=== PATIENT | male | born 1965 | race Caucasian/White ===

== ENCOUNTER 2018-02-08 05:10 | Inpatient (IN) | payer OTHER ==
[2018-02-04 09:12] LABS: BASOPHILS # (AUTO) 0.1 (0.0-0.1); BASOPHILS % 1.4 % (0.0-1.0); EOSINOPHILS # (AUTO) 0.2 (0.0-0.4); EOSINOPHILS % 4.3 % (0.0-6.0); HEMATOCRIT 44.7 % (38.2-49.6); HEMOGLOBIN 15.3 g/dL (14.0-18.0); LYMPHOCYTES # (AUTO) 1.8 (1.0-3.2); LYMPHOCYTES % 32.1 % (18.0-39.1); MEAN CORPUSCULAR HEMOGLOBIN 29.6 pg (28-32); MEAN CORPUSCULAR HGB CONC 34.2 g/dL (31-35); MEAN CORPUSCULAR VOLUME 86.5 fL (81-99); MONOCYTES # (AUTO) 0.4 (0.2-0.8); MONOCYTES % 7.4 % (4.4-11.3); NEUTROPHILS # (AUTO) 3.1 (2.1-6.9); NEUTROPHILS % 54.3 % (38.7-80.0); PLATELET COUNT 242 x10e3/uL (140-360); RED BLOOD COUNT 5.17 x10e6/uL (4.3-5.7)
[2018-02-04 09:28] LABS: BLOOD UREA NITROGEN 15 mg/dL (7-26); BUN/CREATININE RATIO 15 (6-25); CALCIUM 9.6 mg/dL (8.4-10.2); CARBON DIOXIDE 24 mmol/L (22-29); CHLORIDE 107 mmol/L (98-107); CREATININE, SERUM 1.01 mg/dL (0.72-1.25); EST GLOMERULAR FILTRATION RATE > 60 ML/MIN (60-); GLUCOSE 140 mg/dL (74-118); SODIUM 140 mmol/L (136-145)
[~2018-02-08] VITALS: Ht 170.2 cm; Wt 133.9 kg
[~2018-02-08 05:10] MED LIST: ADDERALL XR 2020 MG PO; CYMBALTA30 MG PO; DICYCLOMINE HCL20 MG PO; FISH OIL 1,2001 EAC1 PO; LYRICA75 MG PO; PANTOPRAZOLE SO40 MG PO; VITAMIN B-121000 MCG PO; VITAMIN D250000 UNIT PO
[2018-02-08] MEDS ORDERED: CEFAZOLIN SOD 2 GM/D5W 50ML 50 ML IV ONE (05:34)
[2018-02-08] MEDS ORDERED: BUPIVACAINE HCL 0.5% INJ 30 ML VIAL INJ ONE (06:32)
[2018-02-08] MEDS ORDERED: BACITRACIN 50,000 UNIT VIAL ONE (06:32)
[2018-02-08] MEDS ORDERED: ACETAMINOPHEN 1000 MG/100 ML IV PRN (08:30)
[2018-02-08] MEDS ORDERED: NALOXONE HCL INJ 0.4 MG/ML AMP IV PRN (08:30)
[2018-02-08] MEDS ORDERED: FENTANYL CITRATE/PF 100MCG/2 ML INJ ONE ×2 (08:51→18:43)
[2018-02-08] MEDS: HYDROMORPHONE 0.2MG/ML-SOD CHL 30ML PCA SYRINGE IV PRN ×2 (08:53→15:50)
[2018-02-08] MEDS ORDERED: DULOXETINE HCL 30 MG DELAYED RELEASE PO SCH (09:00)
--- NOTE | 2018-02-08 09:58 | Operative Report ---
DATE OF PROCEDURE: February 08, 2018 PREOPERATIVE DIAGNOSIS: Incisional hernia. POSTOPERATIVE DIAGNOSIS: Incisional hernia. OPERATION PERFORMED: Repair of incisional hernia with mesh. RESERVOIR CARETAKER: None. ANESTHESIA: General. INDICATIONS AND FINDINGS: Patient is a 52-year-old male who presented with complaint of a bulge in his upper abdomen where he had previous surgery. At surgery, there was found to be a hernia in the upper midline with 2 separate areas of herniation, one at the superior end of the wound and one to the right and lower end of the wound. There were some adhesions involving the omentum. Otherwise, no abnormalities were noted intraabdominally. TECHNIQUE: After adequate general endotracheal anesthesia, with the patient in supine position, the abdomen was prepped and draped in a sterile fashion with [place] solution. The midline scar was excised. Incision was carried down through the subcutaneous tissue. There was a large hernia in the upper abdomen which contained colon. This was reduced in the peritoneal cavity. There were adhesions to the abdominal wall which were lysed. The hernia defect was completely delineated. Inferiorly there was a 2nd hernia to the right of the midline. This was also completely delineated. Adhesions to the hernia were lysed, delineating the fascia completely. Once the hernias were completely delineated, there was small thinned-out bridge of fascia in the area. This was opened to create 1 larger defect. The skin and subcutaneous tissues were dissected away from the fascia. Once this was done , a Sepramesh was soaked in antibiotic solution, fashioned to the appropriate size and sutured to the undersurface of the fascia in intraperitoneal position with interrupted horizontal mattress sutures of #0 Prolene. Sutures taken about 3 cm from the edge of the defect throughout the circumference of the hernia defect. Once the mesh was in place, the thinned-out edge of the fascia was closed over the mesh with a running suture of #0 Prolene. A 10-mm Herber-Quintanilla drain was placed into the subcutaneous tissue through a separate stab wound incision. The wound was irrigated with antibiotic solution and inspected for hemostasis, which was seen to be adequate. Subcutaneous tissue was then closed with a running suture of 2-0 Vicryl. Skin was closed with ulisses. Sterile dressing was applied. Patient tolerated the procedure well. Estimated blood loss was 30 mL. There were no complications. All counts were correct. Patient was taken to the recovery room in satisfactory condition. Job#: [id number]
[2018-02-08 11:45] VITALS: BP 124/60
[2018-02-08 11:47] VITALS: BP 124/60
[2018-02-08] MEDS: DICYCLOMINE HCL 20 MG TAB PO SCH ×4 (13:00→20:51)
[2018-02-08] MEDS: SODIUM CHLORIDE 0.9% 1000ML 1,000 ML IV SCH (13:27)
[2018-02-08] MEDS ORDERED: CEFAZOLIN SOD 1 GM/NS 50ML 100 ML IV SCH (14:00)
[2018-02-08] MEDS: CEFAZOLIN SOD 1 GM VIAL IV SCH ×2 (15:51→22:51)
[2018-02-08] MEDS: CYANOCOBALAMIN 1,000 MCG TAB PO SCH (15:51)
[2018-02-08] MEDS: PREGABALIN 75 MG CAP PO SCH (15:51)
[2018-02-08] MEDS: PANTOPRAZOLE SOD 40 MG TABEC PO SCH (15:51)
[2018-02-08] MEDS ORDERED: ADDERALL 20 MG PO SCH (17:00)
[2018-02-08] MEDS ORDERED: SUCCINYLCHOLINE 200 MG/10 ML SYR ONE (17:23)
[2018-02-08] MEDS ORDERED: NEOSTIGMINE 5 MG/5ML SYR ONE (17:23)
[2018-02-08] MEDS ORDERED: ROCURONIUM BROMIDE 10 MG/ML 5ML VIAL ONE (17:23)
[2018-02-08] MEDS ORDERED: DEXAMETHASONE SOD PHOS INJ 4 MG/ML VIAL ONE (17:23)
[2018-02-08] MEDS ORDERED: GLYCOPYRROLATE INJ 1MG/ 5 ML SYR ONE (17:23)
[2018-02-08] MEDS ORDERED: ACETAMINOPHEN 1000 MG/100 ML IV ONE (17:23)
[2018-02-08] MEDS ORDERED: PROPOFOL IV EMULSION 10 MG/ML 20 ML VIAL ONE (17:23)
[2018-02-08] MEDS ORDERED: ONDANSETRON HCL INJ 2 MG/ML VIAL ONE (17:23)
[2018-02-08] MEDS ORDERED: SEVOFLURANE INHAL SOLN 250 ML PEN BTL ONE (17:23)
[2018-02-08] MEDS ORDERED: LIDOCAINE HCL 2% LOCAL INJ 5 ML SDV VIAL INJ ONE (17:23)
[2018-02-08] MEDS ORDERED: ERGOCALCIFEROL 50,000 UNIT CAP PO SCH (18:00)
[2018-02-08] MEDS: ONDANSETRON HCL INJ 2 MG/ML VIAL IV PRN ×2 (18:09→22:58)
[2018-02-08] MEDS ORDERED: MORPHINE SULFATE INJ 10 MG/ML ONE (18:43)
[2018-02-08] MEDS ORDERED: MIDAZOLAM HCL 2 MG/2 ML VIAL ONE (18:43)
[2018-02-08 20:00] VITALS: BP 98/55
[2018-02-08] MEDS: KETOROLAC TROMETHAMINE 30 MG/ML VIAL IV PRN (20:52)
[2018-02-09] VITALS (8 sets, daily range): BP systolic 104–132; BP diastolic 57–75
[2018-02-09] MEDS: KETOROLAC TROMETHAMINE 30 MG/ML VIAL IV PRN ×4 (04:13→23:49)
[2018-02-09] MEDS: SODIUM CHLORIDE 0.9% 1000ML 1,000 ML IV SCH (04:44)
[2018-02-09] MEDS: CEFAZOLIN SOD 1 GM VIAL IV SCH (06:00)
[2018-02-09 07:10] LABS: BASOPHILS % 0.1 % (0.0-1.0); EOSINOPHILS % 0.1 % (0.0-6.0); HEMATOCRIT 41.6 % (38.2-49.6); HEMOGLOBIN 13.6 g/dL (14.0-18.0); LYMPHOCYTES # (AUTO) 1.2 (1.0-3.2); MEAN CORPUSCULAR HEMOGLOBIN 29.8 pg (28-32); MEAN CORPUSCULAR HGB CONC 32.7 g/dL (31-35); MONOCYTES % 10.7 % (4.4-11.3); NEUTROPHILS % 75.7 % (38.7-80.0); PLATELET COUNT 260 x10e3/uL (140-360); RED BLOOD COUNT 4.57 x10e6/uL (4.3-5.7); RED CELL DISTRIBUTION WIDTH 13.5 % (11.7-14.4)
[2018-02-09 07:30] LABS: ANION GAP 14.2 mmol/L (8-16); BLOOD UREA NITROGEN 16 mg/dL (7-26); BUN/CREATININE RATIO 17 (6-25); CALCIUM 8.8 mg/dL (8.4-10.2); CARBON DIOXIDE 23 mmol/L (22-29); CHLORIDE 107 mmol/L (98-107); CREATININE, SERUM 0.96 mg/dL (0.72-1.25); EST GLOMERULAR FILTRATION RATE > 60 ML/MIN (60-); GLUCOSE 102 mg/dL (74-118); POTASSIUM 4.2 mmol/L (3.5-5.1); SODIUM 140 mmol/L (136-145)
[2018-02-09] MEDS ORDERED: ERGOCALCIFEROL 50,000 UNIT CAP PO SCH (09:00)
[2018-02-09] MEDS: DICYCLOMINE HCL 20 MG TAB PO SCH ×4 (09:20→20:40)
[2018-02-09] MEDS: PREGABALIN 75 MG CAP PO SCH (09:21)
[2018-02-09] MEDS: CYANOCOBALAMIN 1,000 MCG TAB PO SCH (09:21)
[2018-02-09] MEDS: HOME MEDICATION--PATIENTS OWN PO SCH (09:21)
[2018-02-09] MEDS: PANTOPRAZOLE SOD 40 MG TABEC PO SCH (09:21)
[2018-02-09] MEDS ORDERED: SODIUM CHLORIDE FLUSH 10 ML SYR INJ PRN (13:15)
[2018-02-09] MEDS ORDERED: DULOXETINE HCL 30 MG DELAYED RELEASE PO SCH (21:00)
[2018-02-10] VITALS (7 sets, daily range): BP systolic 104–157; BP diastolic 56–70
[2018-02-10] MEDS: KETOROLAC TROMETHAMINE 30 MG/ML VIAL IV PRN (07:25)
[2018-02-10] MEDS: PREGABALIN 75 MG CAP PO SCH (08:20)
[2018-02-10] MEDS: DICYCLOMINE HCL 20 MG TAB PO SCH ×2 (08:20→13:09)
[2018-02-10] MEDS: HOME MEDICATION--PATIENTS OWN PO SCH (08:20)
[2018-02-10] MEDS: CYANOCOBALAMIN 1,000 MCG TAB PO SCH (08:21)
[2018-02-10] MEDS: PANTOPRAZOLE SOD 40 MG TABEC PO SCH (08:21)
[2018-02-10] MEDS: HYDROCODONE/APAP 5MG-325MG TAB PO PRN ×2 (11:34→15:36)
--- NOTE | 2018-02-10 15:50 | Discharge Summary ---
ADMISSION DIAGNOSIS: Incisional hernia. DISCHARGE DIAGNOSIS: Incisional hernia. PROCEDURE: Repair of incisional hernia with mesh. HISTORY OF PRESENT ILLNESS: The patient is a a 52-year-old male with previous upper abdominal surgery. He developed swelling at the site of the surgery. Exam revealed 2 separate hernias in the upper abdomen. HOSPITAL COURSE: The patient was admitted to the hospital and underwent surgery the same day as admission. He had repair of incisional hernia with mesh. Postoperatively, the patient was stable. He was started on liquid diet, which he tolerated without problem. Diet was advanced without difficulty. Bowel function returned to normal. He is out of bed ambulating. He had drain placed at the time of surgery, which was draining serosanguineous fluid, and this was removed prior to discharge which was on the second postop day. The patient was discharged on the second postop day. At the time of discharge, he was afebrile, ambulating and tolerating diet. Wound was clean. DISCHARGE MEDICATIONS: [place]. FOLLOWUP INSTRUCTIONS: He will follow up with Dr. Mays in approximately 10 days after discharge. He was sent home in satisfactory condition on a regular diet. MARY ANNE MAYS MD Job#: [id number]
== END 2018-02-10 16:30 | disposition home or self-care (01) | DRG 354 ==
LOC: OR 05:10 → MED/SURG3 11:50
PROVIDERS: ADMIT Surgery; ATTEND Surgery
PROC: 0WUF0JZ Supplement Abdominal Wall with Synthetic Substitute, Open Approach (ICD-10-PCS; principal; 2018-02-08 07:00)
DX: K43.0 Incisional hernia with obstruction, without gangrene (principal); Z68.42 Body mass index [BMI] 45.0-49.9, adult; G47.33 Obstructive sleep apnea (adult) (pediatric); K21.9 Gastro-esophageal reflux disease without esophagitis; E66.3 Overweight
CPT/HCPCS: 36415; 80048; 85025; 93005; 96361; C1781; J0690; J1100; J1885; J2001; J2250; J2270; J2405; J7030

== ENCOUNTER 2019-07-12 07:17 | Observation (INO) | payer OTHER ==
[2019-07-10 10:47] LABS: BASOPHILS # (AUTO) 0.1 (0.0-0.1); BASOPHILS % 1.3 % (0.0-1.0); EOSINOPHILS # (AUTO) 0.3 (0.0-0.4); EOSINOPHILS % 4.2 % (0.0-6.0); HEMATOCRIT 44.1 % (38.2-49.6); HEMOGLOBIN 14.7 g/dL (14.0-18.0); LYMPHOCYTES # (AUTO) 1.9 (1.0-3.2); LYMPHOCYTES % 26.9 % (18.0-39.1); MEAN CORPUSCULAR HEMOGLOBIN 29.5 pg (28-32); MEAN CORPUSCULAR HGB CONC 33.3 g/dL (31-35); MEAN CORPUSCULAR VOLUME 88.4 fL (81-99); MONOCYTES # (AUTO) 0.7 (0.2-0.8); MONOCYTES % 10.4 % (4.4-11.3); NEUTROPHILS # (AUTO) 3.9 (2.1-6.9); NEUTROPHILS % 56.5 % (38.7-80.0); PLATELET COUNT 238 x10e3/uL (140-360); RED BLOOD COUNT 4.99 x10e6/uL (4.3-5.7); RED CELL DISTRIBUTION WIDTH 13.7 % (11.7-14.4)
[2019-07-10 11:09] LABS: ANION GAP 13.2 mmol/L (8-16); BLOOD UREA NITROGEN 20 mg/dL (7-26); BUN/CREATININE RATIO 19 (6-25); CALCIUM 9.3 mg/dL (8.4-10.2); CARBON DIOXIDE 22 mmol/L (22-29); CHLORIDE 106 mmol/L (98-107); CREATININE, SERUM 1.07 mg/dL (0.72-1.25); EST GLOMERULAR FILTRATION RATE > 60 ML/MIN (60-); GLUCOSE 96 mg/dL (74-118); POTASSIUM 4.2 mmol/L (3.5-5.1); SODIUM 137 mmol/L (136-145)
--- NOTE | 2019-07-10 11:56 | Diagnostic Imaging Report ---
Exam: PA and lateral chest radiograph Clinical history: Preoperative clearance Findings: There is no evidence of pulmonary consolidation, pleural effusion, or pneumothorax. There is blunting of the left costophrenic sulcus which may represent pleural thickening versus small pleural effusion. The patient is status post upper lumbar fusion with postoperative changes. Impression: 1. Left basilar mild pleural thickening versus effusion. Otherwise, no acute cardiorespiratory disease. Signed by: Dr. Rome Monge MD on 07/10/2019 11:52 AM
[~2019-07-12] VITALS: Ht 170.2 cm; Wt 138.8 kg
--- OUTSIDE RECORDS SUMMARY | 2019-07-12 07:24 | XMS REPORT ---
Author Author [facility] Address Unknown Phone Unavailable Care Team Providers Care Apartment Manager Name Role Phone MARY ANNE HELTON Unavailable Unavailable Problems This patient has no known problems. Allergies, Adverse Reactions, Alerts This patient has no known allergies or adverse reactions. Medications This patient has no known medications. Results Test Description Test Time Test Comments Text Results Atomic Results Result Comments CHEST 2 VIEWS 2019-07-10 11:51:00 [place] [address] Patient Name: JEYSON MURILLO MR #: [id number] : 1965 Age/Sex: 54/M Req #: [id number] Adm Physician: Ordered by: YOANA KRUEGER MD Report #: [id number] Location: OR Room/Bed: Procedure: [id number] DX/CHEST 2 VIEWS Exam Date: 07/10/19 Exam Time: 1037 REPORT STATUS: Signed Exam: PA and lateral chest radiograph Clinical history: Preoperative clearance Findings: There is no evidence of pulmonary consolidation, pleural effusion, or pneumothorax. There is blunting of the left costophrenic sulcus which may represent pleural thickening versus small pleural effusion. The patient is status post upper lumbar fusion with postoperative changes. Impression: 1. Left basilar mild pleural thickening versus effusion. Otherwise, no acute cardiorespiratory disease. Signed by: Dr. Rome Monge MD on 07/10/2019 11:52 AM Dictated By: CHARU MONGE MD 1152 Transcribed By: ROSALIA on 07/10/19 1152 COPY TO: YOANA KRUEGER MD
--- OUTSIDE RECORDS SUMMARY | 2019-07-12 07:24 | XMS REPORT | Continuity of Care Document ---
Author Author [facility] [employer] Address Unknown Phone Unavailable Care Team Providers Care Seam Taper Machine Name Role Phone [facility] [employer] Unavailable Unavailable Problems No Data Provided for This Section Medications Medication Details Route Status Patient Instructions Ordering Provider Order Date Source Amphet Asp/Amphet/D-Amphet (Adderall Xr 20 Mg Capsule) 20 Mg Cap.er.24h Twice A Day [facility] Cyanocobalamin (Vitamin B-12) 1,000 Mcg Tab Daily [facility] Dicyclomine Hcl 20 Mg Tablet Four Times Daily [facility] Duloxetine Hcl (Cymbalta) 30 Mg Capsule.dr [place] [facility] Ergocalciferol (Vitamin D2) (Vitamin D2) 50,000 Unit Capsule Weekly [facility] [place]-3 Fatty Acids/Fish Oil (Fish Oil 1,200 Mg Softgel) 1 Each Capsule Daily [facility] Pantoprazole Sodium (Protonix) 40 Mg Tablet.dr [place] [facility] Pregabalin (Lyrica) 75 Mg Cap Daily [facility] Allergies, Adverse Reactions, Alerts No Known Medication Allergies Immunizations No Data Provided for This Section Results Order Name Results Value Reference Range Date Interpretation Comments Source Automated blood basophil count (count/volume) Automated blood basophil count (count/volume) 0.0 0.0 - 0.1 02/09/2018 [facility] Automated blood basophil count as percentage of total leukocytes Automated blood basophil count as percentage of total leukocytes 0.1 0.0 - 1.0 02/09/2018 [facility] Automated blood eosinophil count Automated blood eosinophil count 0.0 0.0 - 0.4 02/09/2018 [facility] Automated blood eosinophil count as percentage of total leukocytes Automated blood eosinophil count as percentage of total leukocytes 0.1 0.0 - 6.0 02/09/2018 [facility] Automated blood hematocrit (volume fraction) Automated blood hematocrit (volume fraction) 41.6 38.2 - 49.6 02/09/2018 [facility] Automated blood lymphocyte count as percentage ot total leukocytes Automated blood lymphocyte count as percentage ot total leukocytes 13.0 18.0 - 39.1 02/09/2018 [facility] Automated blood monocyte count as percentage of total leukocytes Automated blood monocyte count as percentage of total leukocytes 10.7 4.4 - 11.3 02/09/2018 [facility] Automated blood neutrophil count Automated blood neutrophil count 7.0 2.1 - 6.9 02/09/2018 [facility] Automated blood platelet count (count/volume) Automated blood platelet count (count/volume) 260 140 - 360 02/09/2018 [facility] Automated blood segmented neutrophil count as percentage of total leukocytes Automated blood segmented neutrophil count as percentage of total leukocytes 75.7 38.7 - 80.0 02/09/2018 [facility] Automated erythrocyte mean corpuscular hemoglobin (mass per erythrocyte) Automated erythrocyte mean corpuscular hemoglobin (mass per erythrocyte) 29.8 28 - 32 02/09/2018 [facility] Automated erythrocyte mean corpuscular hemoglobin concentration measurement (mass/volume) Automated erythrocyte mean corpuscular hemoglobin concentration measurement (mass/volume) 32.7 31 - 35 02/09/2018 [facility] Automated erythrocyte mean corpuscular volume Automated erythrocyte mean corpuscular volume 91.0 81 - 99 02/09/2018 [facility] Blood erythrocytes automated count (number/volume) Blood erythrocytes automated count (number/volume) 4.57 4.3 - 5.7 02/09/2018 [facility] Blood hemoglobin measurement (moles/volume) Blood hemoglobin measurement (moles/volume) 13.6 14.0 - 18.0 02/09/2018 [facility] Blood leukocytes automated count (number/volume) Blood leukocytes automated count (number/volume) 9.18 4.8 - 10.8 02/09/2018 [facility] Blood lymphocytes count (number/volume) Blood lymphocytes count (number/volume) 1.2 1.0 - 3.2 02/09/2018 [facility] Blood monocytes automated count (number/volume) Blood monocytes automated count (number/volume) 1.0 0.2 - 0.8 02/09/2018 [facility] Estimated glomerular filtration rate (GFR) determination Estimated glomerular filtration rate (GFR) determination >60 60 02/09/2018 [facility] Glucose measurement Glucose measurement 102 74 - 118 02/09/2018 [facility] Serum or plasma anion gap Serum or plasma anion gap 14.2 8 - 16 02/09/2018 [facility] Serum or plasma calcium measurement (mass/volume) Serum or plasma calcium measurement (mass/volume) 8.8 8.4 - 10.2 02/09/2018 [facility] Serum or plasma carbon dioxide, total measurement (moles/volume) Serum or plasma carbon dioxide, total measurement (moles/volume) 23 22 - 29 02/09/2018 [facility] Serum or plasma chloride measurement (moles/volume) Serum or plasma chloride measurement (moles/volume) 107 98 - 107 02/09/2018 [facility] Serum or plasma creatinine measurement (mass/volume) Serum or plasma creatinine measurement (mass/volume) 0.96 0.72 - 1.25 02/09/2018 [facility] Serum or plasma potassium measurement (moles/volume) Serum or plasma potassium measurement (moles/volume) 4.2 3.5 - 5.1 02/09/2018 [facility] Serum or plasma sodium measurement (moles/volume) Serum or plasma sodium measurement (moles/volume) 140 136 - 145 02/09/2018 [facility] Serum or plasma urea nitrogen measurement (mass/volume) Serum or plasma urea nitrogen measurement (mass/volume) 16 7 - 26 02/09/2018 [facility] Serum or plasma urea nitrogen/creatinine mass ratio Serum or plasma urea nitrogen/creatinine mass ratio 17 6 - 25 02/09/2018 [facility] Red Cell Distribution Width 13.5 11.7 - 14.4 02/09/2018 [facility] IM GRANULOCYTES % 0.4 0.0 - 1.0 02/09/2018 [facility] Absolute Immature Granulocyte (auto 0.04 0 - 0.1 02/09/2018 [facility] Pathology Reports No Data Provided for This Section Diagnostic Reports No Data Provided for This Section Consultation Notes No Data Provided for This Section Discharge Summaries No Data Provided for This Section History and Physicals No Data Provided for This Section Vital Signs No Data Provided for This Section Encounters Location Location Details Encounter Type Encounter Number Reason For Visit Attending Provider ADM Date DC Date Status Source Discharged Inpatient [id number] MARY ANNE HELTON MD 02/08/2018 02/10/2018 [facility] Procedures Procedure Code Date Perfomer Comments Source Repair of incisional hernia [id number] 02/08/2018 [facility] Assessment and Plan No Data Provided for This Section Plan of Care Plan of Care Date Source Discharge Date 02/10/18 4:30pm Disposition HOME, SELF-CARE Instructions/Education Provided Abdominal Pain - Adult Post Operative Pain Prescriptions See Medication Section Referrals MARY ANNE HELTON MD (Surgery) Entered Date: 02/10/2018 4:03pm Address: [address] [place] [id number] Additional Instructions/Education Regular diet Pt may shower. Prescription for [place] Pt should call [phone] for F/U juan josé't with in 10 -14 days 02/10/2018 [facility] Social History Social History Date Source Social History Problem Response Recorded Date/Time Onset Date Status Hx Psychiatric Problems No 02/08/2018 11:45am Not Applicable Not Applicable 02/10/2018 [facility] Family History No Data Provided for This Section Advance Directives Order Name Results Value Date Source Advance Directives Advance Directives Directive Response Recorded Date/Time Does the patient have an advance directive? No 02/08/18 11:45am If yes, is advance directive on file with [facility]? No 02/08/18 11:45am If not on file with [facility] will patient provide a copy? No 02/08/18 11:45am Do you have a Directive to Physician? No 02/04/18 8:25am Do you have a Medical Power of Projection Printer? No 02/04/18 8:25am Do you have an out of hospital Do Not Resuscitate Order? No 02/04/18 8:25am Do you have any special needs we should be aware of? No 02/04/18 8:25am Do you have a support person here with you today? Yes 02/04/18 8:25am Did patient receive Notice of Privacy Practices? Yes 02/04/18 8:25am Did patient receive patient rights and responsibilities? Yes 02/04/18 8:25am 02/10/2018 [facility] Functional Status No Data Provided for This Section
[2019-07-12] MEDS ORDERED: CEFAZOLIN SOD 1 GM/NS 50ML 100 ML IV ONE (07:38)
[2019-07-12] MEDS ORDERED: BACITRACIN 50,000 UNIT VIAL ONE (07:42)
[2019-07-12] MEDS ORDERED: BUPIVACAINE HCL 0.5% INJ 30 ML VIAL INJ ONE (07:42)
[2019-07-12] MEDS ORDERED: LIDOCAINE HCL (LTA) 4 ML SOLN ONE (09:10)
[2019-07-12] MEDS ORDERED: SUGAMMADEX SODIUM 200 MG/2 ML VIAL IV ONE (09:11)
[2019-07-12] MEDS ORDERED: ACETAMINOPHEN 1000 MG/100 ML IV PRN (10:15)
[2019-07-12] MEDS ORDERED: KETOROLAC TROMETHAMINE 30 MG/ML VIAL IV PRN (10:15)
[2019-07-12] MEDS ORDERED: HYDROMORPHONE 0.2MG/ML-SOD CHL 30ML PCA SYRINGE IV PRN ×2 (10:15→18:00)
[2019-07-12] MEDS ORDERED: NALOXONE HCL INJ 0.4 MG/ML AMP IV PRN (10:15)
[2019-07-12] MEDS ORDERED: ONDANSETRON HCL INJ 2MG/ML 2ML 2 MG/ML VIAL IV PRN (10:15)
[2019-07-12] MEDS ORDERED: DIPHENHYDRAMINE HCL 25 MG CAP PO PRN (10:15)
[2019-07-12] MEDS ORDERED: HYDROMORPHONE 2MG/ML 2 MG/ML ML ONE (10:35)
[2019-07-12] MEDS ORDERED: HYDROMORPHONE 0.2MG/ML-SOD CHL 30ML PCA SYRINGE IV ONE (10:39)
--- OUTSIDE RECORDS SUMMARY | 2019-07-12 10:54 | XMS REPORT | Continuity of Care Document ---
Author Author [facility] [employer] Address Unknown Phone Unavailable Care Team Providers Care Speech Language Pathologist Assistant Name Role Phone [facility] Information Exchange Unavailable Unavailable Problems No Data Provided for This Section Medications Medication Details Route Status Patient Instructions Ordering Provider Order Date Source Amphet Asp/Amphet/D-Amphet (Adderall Xr 20 Mg Capsule) 20 Mg Cap.er.24h Twice A Day [facility] Cyanocobalamin (Vitamin B-12) 1,000 Mcg Tab Daily [facility] Dicyclomine Hcl 20 Mg Tablet Four Times Daily [facility] Duloxetine Hcl (Cymbalta) 30 Mg Capsule.dr Billingsley [facility] Ergocalciferol (Vitamin D2) (Vitamin D2) 50,000 Unit Capsule Weekly [facility] [place]-3 Fatty Acids/Fish Oil (Fish Oil 1,200 Mg Softgel) 1 Each Capsule Daily [facility] Pantoprazole Sodium (Protonix) 40 Mg Tablet.dr [place] [facility] Pregabalin (Lyrica) 75 Mg Cap Daily [facility] Allergies, Adverse Reactions, Alerts No Known Medication Allergies Immunizations No Data Provided for This Section Results Order Name Results Value Reference Range Date Interpretation Comments Source Automated blood basophil count (count/volume) Automated blood basophil count (count/volume) 0.0 0.0 - 0.1 02/09/[address] [facility] Automated blood basophil count as percentage of total leukocytes Automated blood basophil count as percentage of total leukocytes 0.1 0.0 - 1.0 02/09/[address] [facility] Automated blood eosinophil count Automated blood eosinophil count 0.0 0.0 - 0.4 02/09/[address] [facility] Automated blood eosinophil count as percentage of total leukocytes Automated blood eosinophil count as percentage of total leukocytes 0.1 0.0 - 6.0 02/09/[address] [facility] Automated blood hematocrit (volume fraction) Automated blood hematocrit (volume fraction) 41.6 38.2 - 49.6 02/09/[address] [facility] Automated blood lymphocyte count as percentage ot total leukocytes Automated blood lymphocyte count as percentage ot total leukocytes 13.0 18.0 - 39.1 02/09/[address] [facility] Automated blood monocyte count as percentage of total leukocytes Automated blood monocyte count as percentage of total leukocytes 10.7 4.4 - 11.3 02/09/[address] [facility] Automated blood neutrophil count Automated blood neutrophil count 7.0 2.1 - 6.9 02/09/[address] [facility] Automated blood platelet count (count/volume) Automated blood platelet count (count/volume) 260 140 - 360 02/09/[address] [facility] Automated blood segmented neutrophil count as percentage of total leukocytes Automated blood segmented neutrophil count as percentage of total leukocytes 75.7 38.7 - 80.0 02/09/[address] [facility] Automated erythrocyte mean corpuscular hemoglobin (mass per erythrocyte) Automated erythrocyte mean corpuscular hemoglobin (mass per erythrocyte) 29.8 28 - 32 02/09/[address] [facility] Automated erythrocyte mean corpuscular hemoglobin concentration measurement (mass/volume) Automated erythrocyte mean corpuscular hemoglobin concentration measurement (mass/volume) 32.7 31 - 35 02/09/[address] [facility] Automated erythrocyte mean corpuscular volume Automated erythrocyte mean corpuscular volume 91.0 81 - 99 02/09/[address] [facility] Blood erythrocytes automated count (number/volume) Blood erythrocytes automated count (number/volume) 4.57 4.3 - 5.7 02/09/[address] [facility] Blood hemoglobin measurement (moles/volume) Blood hemoglobin measurement (moles/volume) 13.6 14.0 - 18.0 02/09/[address] [facility] Blood leukocytes automated count (number/volume) Blood leukocytes automated count (number/volume) 9.18 4.8 - 10.8 02/09/[address] [facility] Blood lymphocytes count (number/volume) Blood lymphocytes count (number/volume) 1.2 1.0 - 3.2 02/09/[address] [facility] Blood monocytes automated count (number/volume) Blood monocytes automated count (number/volume) 1.0 0.2 - 0.8 02/09/[address] [facility] Estimated glomerular filtration rate (GFR) determination Estimated glomerular filtration rate (GFR) determination >60 60 02/09/[address] [facility] Glucose measurement Glucose measurement 102 74 - 118 02/09/[address] [facility] Serum or plasma anion gap Serum or plasma anion gap 14.2 8 - 16 02/09/[address] [facility] Serum or plasma calcium measurement (mass/volume) Serum or plasma calcium measurement (mass/volume) 8.8 8.4 - 10.2 02/09/[address] [facility] Serum or plasma carbon dioxide, total measurement (moles/volume) Serum or plasma carbon dioxide, total measurement (moles/volume) 23 22 - 29 02/09/[address] [facility] Serum or plasma chloride measurement (moles/volume) Serum or plasma chloride measurement (moles/volume) 107 98 - 107 02/09/[address] [facility] Serum or plasma creatinine measurement (mass/volume) Serum or plasma creatinine measurement (mass/volume) 0.96 0.72 - 1.25 02/09/[address] [facility] Serum or plasma potassium measurement (moles/volume) Serum or plasma potassium measurement (moles/volume) 4.2 3.5 - 5.1 02/09/[address] [facility] Serum or plasma sodium measurement (moles/volume) Serum or plasma sodium measurement (moles/volume) 140 136 - 145 02/09/[address] [facility] Serum or plasma urea nitrogen measurement (mass/volume) Serum or plasma urea nitrogen measurement (mass/volume) 16 7 - 26 02/09/[address] [facility] Serum or plasma urea nitrogen/creatinine mass ratio Serum or plasma urea nitrogen/creatinine mass ratio 17 6 - 25 02/09/[address] [facility] Red Cell Distribution Width 13.5 11.7 - 14.4 02/09/[address] [facility] IM GRANULOCYTES % 0.4 0.0 - 1.0 02/09/[address] [facility] Absolute Immature Granulocyte (auto 0.04 0 - 0.1 02/09/[address] [facility] Pathology Reports No Data Provided for [...] Date DC Date Status Source Discharged Inpatient [id number] MARY ANNE HELTON MD 02/08/2018 02/10/[address] [facility] Procedures Procedure Code Date Perfomer Comments Source Repair of incisional hernia [id number] 02/08/2018 [facility] Assessment and Plan No Data Provided for This Section Plan of Care Plan of Care Date Source Discharge Date 02/10/18 4:30pm Disposition HOME, SELF-CARE Instructions/Education Provided Abdominal Pain - Adult Post Operative Pain Prescriptions See Medication Section Referrals MARY ANNE HELTON MD (Surgery) Entered Date: 02/10/2018 4:03pm Address: [address] [place] [id number] Additional Instructions/Education Regular diet Pt may shower. Prescription for [place] Pt should call [phone] for F/U juan josé't with in 10 -14 days 02/10/[address] [facility] Social History Social History Date Source Social History Problem Response Recorded Date/Time Onset Date Status Hx Psychiatric Problems No 02/08/2018 11:45am Not Applicable Not Applicable 02/10/[address] [facility] Family History No Data Provided for This Section Advance Directives Order Name Results Value Date Source Advance Directives Advance Directives Directive Response Recorded Date/Time Does the patient have an advance directive? No 02/08/18 11:45am If yes, is advance directive on file with [facility]? No 02/08/18 11:45am If not on file with [facility] will patient provide a copy? No 02/08/18 11:45am Do you have a Directive to Physician? No 02/04/18 8:25am Do you have a Medical Power of Steam Tender? No 02/04/18 8:25am Do you have an [...] rights and responsibilities? Yes 02/04/18 8:25am 02/10/[address] [facility] Functional Status No Data Provided for This Section
[2019-07-12] MEDS ORDERED: FENTANYL CITRATE/PF 100MCG/2 ML INJ ONE ×2 (10:56→17:52)
--- NOTE | 2019-07-12 11:20 | Operative Report ---
DATE OF PROCEDURE: 07/12/2019 SURGEON: Darion Mays MD PREOPERATIVE DIAGNOSIS: Recurrent incisional hernia. POSTOPERATIVE DIAGNOSIS: Recurrent incisional hernia. PROCEDURE: Repair of recurrent incisional hernia with mesh, with lysis of adhesions. WET POUR SUPERVISOR: None. ANESTHESIA: General. INDICATIONS AND FINDINGS: The patient is a 54-year-old male, previous surgery for perforated duodenal ulcer and also previous hernia repair. He presents with complaints of bulge in the lower end of his previous wound. At Surgery, the patient on a hernia at the edge of the previous hernia repair. The fascial defect that was approximately 5 x 5 cm. TECHNIQUE: After adequate general endotracheal anesthesia, the patient is in supine position. The abdomen was prepped and draped in sterile fashion with ChloraPrep solution. The widened scar at the lower end of his previous midline wound was excised. Incision was carried down through subcutaneous tissue. The herniated mass identified, herniated mass was dissected free from surrounding tissues, started at the edge of the mesh from the previous repair extended inferiorly. The hernia sac was opened, there was adherent bowel within the hernia sac, and adhesions were lysed and the small bowel was reduced in the peritoneal cavity, there was also adherent omentum which also was free from adhesions and reduced in the peritoneal cavity. The fascial defect was completely delineated. Once this was done, and the adhesions to the abdominal wall were lysed, so that the mesh could be placed. A Sepramesh appropriate size was soaked in antibiotic solution, fashioned appropriately, and sutured to the undersurface of the fascia in the intraperitoneal underlay position with interrupted horizontal mattress sutures of 0 prolene. The skin edges were undermined to facilitate, so that the sutures could be placed well away from the edge of the defect approximately 3 cm from the edge of the defect. Once the mesh was in place and the edge of the fascia were closed over the mesh with a running suture of 0 prolene. Care was taken not to entrap any of the bowel. Hemostasis was seen to be adequate. The wound was irrigated with antibiotic solution. A 10 mm flat Herber-Quintanilla drain was placed in the wound through a separate stab wound incision. Wound was also infiltrated with 0.5% Marcaine. The subcutaneous tissue was then closed with running suture with 3-0 Vicryl. Skin was closed with ulisses. Sterile dressing was applied. The patient tolerated the procedure well. Estimated blood loss was 50 mL. There were no complications. All counts were correct. The patient was taken to the recovery room in satisfactory condition. MD LURDES Macias/JOCELYN /[id number]
[2019-07-12 13:17] VITALS: BP 157/79
[2019-07-12 13:20] VITALS: BP 157/79
--- NOTE | 2019-07-12 13:20 | NUR ---
RECEIVED PT TO FLOOR AA0X3 PT STATES HIS PAIN IS TOLERABLE AT 2/10 TO ABD ABD SITE IS CLEAN AND DRY WITH MARK DRAIN IN PLACE COMPRESSION STOCKINGS ON IV TO THE RIGHT HAND 20 WITH FLUIDS RUNNING AND UROLOGIC SURGEON PUMP WILL CONTINUE TO MONITOR PT CLOSELY SIDE RAILX2, BED WHEELS LOCKED, CALL LIGHT IS WITHIN EASY REACH INSTRUCTED TO CALL FOR ASSISTANCE IF NEEDED
[2019-07-12 13:32] VITALS: BP 157/79
[2019-07-12] MEDS: PANTOPRAZOLE SOD 40 MG TABEC PO SCH (13:38)
[2019-07-12] MEDS: D5.45%NS/KCL 20MEQ 1,000 ML IV SCH ×2 (13:38→20:15)
[2019-07-12 16:00] VITALS: BP 119/67
[2019-07-12] MEDS ORDERED: ROCURONIUM BROMIDE 10 MG/ML 5ML VIAL ONE (16:35)
[2019-07-12] MEDS ORDERED: DEXAMETHASONE SOD PHOS INJ 4 MG/ML VIAL ONE (16:35)
[2019-07-12] MEDS ORDERED: SEVOFLURANE INHAL SOLN 250 ML PEN BTL ONE (16:35)
[2019-07-12] MEDS ORDERED: ACETAMINOPHEN 1000 MG/100 ML IV ONE (16:35)
[2019-07-12] MEDS ORDERED: LIDOCAINE HCL 2% LOCAL INJ 5 ML SDV VIAL INJ ONE (16:35)
[2019-07-12] MEDS ORDERED: PROPOFOL IV EMULSION 10 MG/ML 20 ML VIAL ONE (16:35)
[2019-07-12] MEDS ORDERED: ONDANSETRON HCL INJ 2MG/ML 2ML 2 MG/ML VIAL ONE (16:35)
[2019-07-12] MEDS: CEFAZOLIN SOD 2 GM/D5W 50ML 50 ML IV SCH (16:52)
[2019-07-12] MEDS ORDERED: CEFAZOLIN SOD 1 GM VIAL IV SCH (17:00)
[2019-07-12] MEDS ORDERED: MORPHINE SULFATE INJ 10 MG/ML ONE (17:52)
[2019-07-12] MEDS ORDERED: MIDAZOLAM HCL 2 MG/2 ML VIAL ONE (17:52)
--- NOTE | 2019-07-12 18:01 | NUR ---
MD OROZCO OK ORDER TO DC BASAL DUE TO NAUSEA AT THIS TIME
[2019-07-12 19:45] VITALS: BP 127/79
[2019-07-12 22:21] VITALS: BP 127/79
[2019-07-13] MEDS: CEFAZOLIN SOD 2 GM/D5W 50ML 50 ML IV SCH ×2 (00:05→05:30)
[2019-07-13 00:32] VITALS: BP 130/73
[2019-07-13 03:55] VITALS: BP 109/64
[2019-07-13] MEDS: D5.45%NS/KCL 20MEQ 1,000 ML IV SCH (05:30)
[2019-07-13 05:41] LABS: BASOPHILS % 0.2 % (0.0-1.0); EOSINOPHILS % 0.1 % (0.0-6.0); HEMATOCRIT 41.5 % (38.2-49.6); HEMOGLOBIN 13.8 g/dL (14.0-18.0); LYMPHOCYTES # (AUTO) 1.2 (1.0-3.2); LYMPHOCYTES % 10.2 % (18.0-39.1); MEAN CORPUSCULAR HEMOGLOBIN 29.9 pg (28-32); MEAN CORPUSCULAR HGB CONC 33.3 g/dL (31-35); MEAN CORPUSCULAR VOLUME 89.8 fL (81-99); MONOCYTES # (AUTO) 1.1 (0.2-0.8); NEUTROPHILS # (AUTO) 9.4 (2.1-6.9); NEUTROPHILS % 79.8 % (38.7-80.0); PLATELET COUNT 239 x10e3/uL (140-360); RED BLOOD COUNT 4.62 x10e6/uL (4.3-5.7); RED CELL DISTRIBUTION WIDTH 13.9 % (11.7-14.4)
[2019-07-13 06:02] LABS: ANION GAP 9.1 mmol/L (8-16); BLOOD UREA NITROGEN 13 mg/dL (7-26); BUN/CREATININE RATIO 14 (6-25); CALCIUM 9.3 mg/dL (8.4-10.2); CARBON DIOXIDE 28 mmol/L (22-29); CHLORIDE 106 mmol/L (98-107); CREATININE, SERUM 0.95 mg/dL (0.72-1.25); EST GLOMERULAR FILTRATION RATE > 60 ML/MIN (60-); GLUCOSE 113 mg/dL (74-118); POTASSIUM 5.1 mmol/L (3.5-5.1); SODIUM 138 mmol/L (136-145)
--- NOTE | 2019-07-13 07:15 | NUR ---
RECEIVED PT TO FLOOR AA0X3 PT STATES HIS PAIN IS TOLERABLE AT 2/10 TO ABD ABD SITE IS CLEAN AND DRY WITH MARK DRAIN IN PLACE COMPRESSION STOCKINGS ON IV TO THE RIGHT HAND 20 WITH FLUIDS RUNNING AND SENIOR PRIVATE CLIENT ADVISOR PUMP WILL CONTINUE TO MONITOR PT CLOSELY SIDE RAILX2, BED WHEELS LOCKED, CALL LIGHT IS WITHIN EASY REACH INSTRUCTED TO CALL FOR ASSISTANCE IF NEEDED
[2019-07-13 08:17] VITALS: BP 122/78
[2019-07-13] MEDS: PANTOPRAZOLE SOD 40 MG TABEC PO SCH (08:28)
[2019-07-13 09:12] VITALS: BP 122/78
[2019-07-13 12:19] VITALS: BP 111/62
[2019-07-13] MEDS ORDERED: NORCO 7.5-3251 EACH PO (15:43)
[2019-07-13 16:04] VITALS: BP 130/63
--- NOTE | 2019-07-13 16:20 | NUR ---
DISCHARGE INSTRUCTIONS AND PRESCRIPTIONS GIVEN PT VERBALIZED UNDERSTANDING IV DC PRESSURE DRESSING APPLIED AND TAPED DRESSING TO ABD CHANGED MARK DRAIN EMPTYING TEACHING COMPLETE PT UNDERSTANDS FOLLOW UP VISIT ABD BINDER GIVEN AND PLACED FOR COMFORT PT IS NOW OFF UNIT TO HOME
== END 2019-07-13 16:15 | disposition home or self-care (01) ==
LOC: OR 07:17 → PACU V 10:36 → MED/SURG 13:22
PROVIDERS: ADMIT Surgery; ATTEND Surgery
DX: K43.2 Incisional hernia without obstruction or gangrene (principal); Z01.812 Encounter for preprocedural laboratory examination; G47.33 Obstructive sleep apnea (adult) (pediatric); E66.01 Morbid (severe) obesity due to excess calories; Z68.42 Body mass index [BMI] 45.0-49.9, adult; Z83.3 Family history of diabetes mellitus; Z82.49 Family history of ischemic heart disease and other diseases of the circulatory system; Z87.891 Personal history of nicotine dependence; K66.0 Peritoneal adhesions (postprocedural) (postinfection)
CPT/HCPCS: 36415 ×3; 49565; 49568; 71046; 80048 ×2; 82948; 85025 ×2; 93005; C1781; G0378 ×2; J0131; J0690 ×2; J1170; J2250; J2270; J2405; J3010; S0164 ×2; J1100; J2001